=== PATIENT | female | born 1925 | race Caucasian/White ===

== ENCOUNTER → 2016-10-06 | Outpatient (CLI) | payer OTHER, BC ==
--- NOTE | ~2016-10-06 | EKG ---
[place] [address] [facility] [place] [address] ELECTROCARDIOGRAM REPORT Name: KODAK NEGRETE [facility]: [facility] [id number] Admission: 10/06/16 Attend Phys: Joyce Azul MD Discharge: Date of : [birth year] Report #: [id number] THIS REPORT FOR: //name// [facility] Test Date: 2016-10-06 Test Time: 13:23:24 Pat Name: KODAK NEGRETE Department: Room: Gender: F Ict Analyst: KERRY : 1925 Requested By: Joyce Azul Order Number: [id number] MD: Arsenio Ward Measurements Intervals [address] Flat Rate: 67 P: 66 OR: 209 QRS: -28 QRSD: 100 T: 73 QT: 386 QTc: 408 Interpretive Statements Sinus rhythm Borderline left axis deviation Abnormal R-wave progression, late transition Compared to ECG 05/04/2008 18:51:51 T-wave abnormality no longer present Electronically Signed On 10-07-2016 8:30:57 CDT by Arsenio Ward [email or web address] <ELECTRONICALLY SIGNED> By: Arsenio Ward MD, [facility] 10/07/16 0830 1323 132 Arsenio Ward MD, [facility] /EPI
== END ==
LOC: CV 12:52
DX: Z01.818 Encounter for other preprocedural examination (principal); I10 Essential (primary) hypertension